=== PATIENT | male | born 1955 | race Two or more races ===

== ENCOUNTER 2018-09-01 05:55 | Day surgery (SDC) | payer OTHER ==
[~2018-09-01] VITALS: Ht 132.1 cm; Wt 63.5 kg
[2018-09-01] MEDS ORDERED: CIPROFLOXACIN 400MG/200ML 200 ML IV ONE (07:02)
[2018-09-01 07:26] LABS: INR 0.93 (0.9-1.15)
[2018-09-01] MEDS ORDERED: SUCCINYLCHOLINE CHLORIDE 20 MG/ML 10ML VIAL IV ONE (07:33)
[2018-09-01] MEDS ORDERED: LIDOCAINE 1% HCL (LOCAL ANESTH.) INJ 20ML MDV ONE (07:33)
[2018-09-01] MEDS ORDERED: MIDAZOLAM HCL 1MG/1ML-2 ML VIAL ONE ×2 (07:36→07:40)
[2018-09-01] MEDS ORDERED: METOCLOPRAMIDE HCL 5MG/ml INJ 2ml VIAL ONE (07:37)
[2018-09-01] MEDS ORDERED: diphenhdrAMINE HCL 50 MG/1 ML VL ONE (07:37)
[2018-09-01] MEDS ORDERED: GLYCOPYRROLATE 0.2 MG/ML 1ML VIAL ONE (07:37)
[2018-09-01] MEDS ORDERED: PROPOFOL 10 MG/ML 20 ML IV ONE (07:39)
[2018-09-01] MEDS ORDERED: NALOXONE HCL 0.4 MG/ML VIAL IV PRN (08:00)
[2018-09-01] MEDS ORDERED: ACCU-CHEK COMFORT CURVE STRIP VI ONE (08:00)
[2018-09-01] MEDS ORDERED: ONDANSETRON HCL 4 MG/2 ML VIAL IV ONE (08:00)
[2018-09-01] MEDS ORDERED: HYDROmorphone HCL 2 MG/ML VL IV PRN (08:00)
[2018-09-01 08:25] VITALS: BP 131/78
== END 2018-09-01 08:40 | disposition home or self-care (01) ==
LOC: SUR 05:55
PROVIDERS: ATTEND Urology
DX: R97.20 Elevated prostate specific antigen [PSA] (principal); N42.0 Calculus of prostate; I10 Essential (primary) hypertension; E11.9 Type 2 diabetes mellitus without complications; G47.33 Obstructive sleep apnea (adult) (pediatric); K21.9 Gastro-esophageal reflux disease without esophagitis; Z79.82 Long term (current) use of aspirin; Z79.899 Other long term (current) drug therapy; Z88.8 Allergy status to other drugs, medicaments and biological substances
CPT/HCPCS: 36415; 55700; 76942; 82962; 85610; 85730; 88305; 88342; J0330; J0744; J1200; J2001; J2250; J2704; J2765